=== PATIENT | female | born 1970 | race Caucasian/White ===

== ENCOUNTER 2016-10-12 12:18 | Emergency (ER) | payer OTHER ==
[2016-10-12 12:26] VITALS: BP 131/87; PULSE 73; TEMP 98; BMI 26.5
[2016-10-12] MEDS ORDERED: IBUPROFEN 400 MG TABLET (FP) PO ONE ×2 (13:15→13:18)
--- NOTE | 2016-10-12 13:22 | PDOC ---
History of Present Illness - General Chief Complaint: Pain Stated Complaint: RT ELBOW PAIN Time Seen by Provider: 10/12/16 12:47 History Source: Patient - History of Present Illness Occurred: reports: other Upper Extremity Pain Location: right: elbow Method of Injury: reports: direct blow Past History - Past Medical History Allergies/Adverse Reactions: Allergies Allergy/AdvReac Type Severity Reaction Status Date / Time dark chocolate Allergy Uncoded 10/12/16 12:26 Home Medications: Ambulatory Orders NK [No Known Home Medication] 10/12/16 Other medical history: migraines - Psycho/Social/Smoking Cessation Hx Suicidal Ideation: No Smoking History: Never smoked Have you smoked in the past 12 months: No Information on smoking cessation initiated: No Hx Alcohol Use: No Drug/Substance Use Hx: No Review of Systems - Review of Systems Constitutional: No: Chills, Fever Musculoskeletal: Yes: Joint Pain. No: Joint Swelling Neurological: No: Numbness, Tingling, Weakness *Physical Exam - Vital Signs Last Vital Signs Temp Pulse Resp BP Pulse Ox 98.0 F 73 16 131/87 97 10/12/16 12:23 10/12/16 12:23 10/12/16 12:23 10/12/16 12:23 10/12/16 12:23 - Physical Exam General Appearance: Yes: Appropriately Dressed. No: Apparent Distress HEENT: positive: Normal Voice Neck: positive: Supple Respiratory/Chest: negative: Respiratory Distress Extremity: positive: Tender (to medical epicondyle mostly w/ pain to site on elbow flexion and with supination to pronation of RUE, ? tendinitis, no joint swelling, FROMI) Integumentary: positive: Dry, Warm Neurologic: positive: Fully Oriented, Alert, Normal Mood/Affect Medical Decision Making - Medical Decision Making 10/12/16 13:17 45-year-old female, denies any significant past medical history, here with right elbow pain. Patient reports pain to elbow status post accidentally striking it against a heavy door several weeks ago. States bruising to lateral aspect of elbow healed but that pain has persisted and gradually getting worse, affecting her ADLs and keeping her up at night. States she is not sure if her injury weeks ago is causing her pain or if it is due to the fact that she used to lift weights. 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 Taking motrin w/ some relief. Denies swelling or sensory changes. Pt well appearing on exam w/ moderate ttp over both lateral and medial epicondyles, worse over medial epicondyle w/ worsening pain w/ flexion of elbow. ?tendinitis vs other MSK source. Dc w/ pain control, sling and ortho f/u *DC/Admit/Observation/Transfer Diagnosis at time of Disposition: Elbow pain, right - Discharge Dispostion Disposition: HOME Condition at time of disposition: Good - Referrals Referrals: Teja Allen MD [Staff Physician] - - Patient Instructions Printed Discharge Instructions: DI for Elbow Pain Additional Instructions: Please follow up with Dr Allen of orthopedics
== END 2016-10-12 13:24 | disposition home or self-care (01) ==
LOC: JERFT 12:18 → JER 12:18 → JERFT 13:24
DX: M25.521 Pain in right elbow (principal)
CPT/HCPCS: 99281-25

== ENCOUNTER 2019-01-27 12:56 | Day surgery (SDC) | payer OTHER | END 2019-01-27 18:15 | disposition home or self-care (01) | LOC: FASU 12:56 ==

== ENCOUNTER 2019-04-17 10:16 | Inpatient (IN) | payer OTHER ==
[2019-04-17] MEDS ORDERED: BUPIVACAINE LIPOSOME/PF (EXPAREL) 266 MG/20 ML VIAL ONE ×2 (10:36→11:25)
[2019-04-17] MEDS ORDERED: BUPIVACAINE HCL/PF 0.25% (2.5MG/ML) 10 ML VIAL ONE (10:36)
[2019-04-17] MEDS ORDERED: BENZOIN TINCTURE SWABSTICK TP ONE (11:03)
[2019-04-17] MEDS ORDERED: KETAMINE HCL 200 MG/20 ML VIAL ONE (11:13)
[2019-04-17] MEDS ORDERED: MIDAZOLAM HCL 2 MG/2 ML SINGLE DOSE VIAL ONE ×2 (11:13→11:27)
[2019-04-17] MEDS ORDERED: ROPIVACAINE HCL 0.5% 30ML VIAL ONE (11:25)
[2019-04-17] MEDS ORDERED: PROPOFOL 20 ML ONE ×8 (12:05→13:54)
[2019-04-17] MEDS ORDERED: ceFAZolin SODIUM 1 GM VIAL IVPB ONE ×2 (12:05→20:36)
[2019-04-17] MEDS ORDERED: VANCOMYCIN 1,000 MG VIAL (RESTRICTED TO ID ONLY) IVPB ONE (12:18)
[2019-04-17] MEDS ORDERED: THROMBIN (BOVINE) 5,000 UNIT VIAL TP ONE (12:32)
[2019-04-17] MEDS ORDERED: EPHEDRINE SULFATE/0.9% NACL/PF 50 MG/10 ML SYRINGE NR ONE (12:39)
[2019-04-17] MEDS ORDERED: TRANEXAMIC ACID 1000 MG/10 ML VIAL ONE (13:19)
[2019-04-17] MEDS ORDERED: GLYCOPYRROLATE 0.2 MG/1 ML VIAL ONE (14:00)
[2019-04-17] MEDS ORDERED: NEOSTIGMINE METHYLSULFATE 0.5 MG/1 ML - 10 ML MDV ONE (14:01)
[2019-04-17] MEDS ORDERED: ceFAZolin SODIUM 1 GM VIAL ONE ×2 (15:28→19:56)
--- NOTE | 2019-04-17 15:48 | PN ---
Progress Note (short form) - Note Progress Note: 48F s/p L3, L4, L5, S1 laminectomies; L4-L5, L5-S1 discectomies; L4-L5, L5-S1 PLIF; insertion of biomechanical device L4-L5, L5-S1; L3-S1 posterior arthrodesis; L3-S1 posterior instrumentation POD #0. -Admit to ICU post-op. -Pain control: per anaesthesia team; recommend SHOPPER INSIGHTS MANAGER; No NSAID's. -DVT PPx: - Mechanical only: CHAPITO's, SCD's. -Incentive spirometry q15min. -PT/OT/Rehab, OOB. -WBAT B/L LE. -q4h B/L LE NV checks. -Post-op antibiotics x 3 doses. -NPO until flatus. -f/u AM labs. -f/u drain output. -d/c Aparicio catheter when patient ambulating comfortably. -Care per medical hospitalist: Dr. Orosco. -No bending, lifting more than 5lbs, or twisting x 6 months. -Discharge planning: f/u w/in 7-10 days of hospital discharge at [facility] [place] office; call for appointment; . -Will follow. Harris Fabian MD (Orthopaedic Surgery).
--- NOTE | 2019-04-17 15:51 | OP ---
Operative Note - Note: Operative Date: 04/17/19 Pre-Operative Diagnosis: 1. 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 2. L4-L5 spondylolisthesis. 3. Multi-level axial instability lumbar spine. Severity of illness: 4. Operation: 1. L3, L4, L5, S1 laminectomies. 2. L4-L5, L5-S1 PLIF with posterolateral arthrodesis. 3. Insertion of biomechanical device L4-L5, L5-S1. 4. L3-S1 posterior instrumentation. 5. Bone autograft. 6. Bone allograft. 7. BMAC. 8. Complex wound closure Post-Operative Diagnosis: Same as Pre-op Surgeon: Harris Fabian Vegetable Farming Supervisor: Luis Carlos Fabian Anesthesiologist/PRICING INTERN: Edward Sevilla Anesthesia: General, Local (TLIP) Specimens Removed: L4-L5, L5-S1 discs Estimated Blood Loss (mls): 1,000 Drains & Tubes with Location: 1 x deep HemoVac Blood Volume Replaced (mls): 450 (Cell Saver) Fluid Volume Replaced (mls): 3,000 (Crystalloid) Operative Report Dictated: Yes
[2019-04-17] MEDS ORDERED: PHENYLEPHRINE HCL 10 MG/1 ML SINGLE DOSE VIAL ONE (16:34)
[2019-04-17] MEDS ORDERED: BACITRACIN 15 GM TUBE TOPICAL OINTMENT ONE (16:52)
[2019-04-17] MEDS ORDERED: ONDANSETRON 4 MG/2 ML VIAL IVPUSH PRN (17:08)
--- NOTE | 2019-04-17 17:19 | PN ---
Progress Note (short form) - Note Progress Note: In PACU, tongue laceration. ENT (Dr. Sanderson) consulted. Will follow.
[2019-04-17] MEDS ORDERED: LIDOCAINE HCL 1%, 10 MG/ML (20ML VIAL) ONE (17:40)
[2019-04-17] MEDS ORDERED: LIDOCAINE HCL 1% EPINEPHRINE 1:200,000 30 ML VIAL (PF) ONE (17:41)
[2019-04-17] MEDS ORDERED: HYDROmorphone *PCA* 10MG/50ML DISP.SYRIN ONE (17:55)
--- NOTE | 2019-04-17 18:10 | CON.ENT ---
Consult Consult Specialty:: ENT Referred by:: Dr. Crawley Reason for Consultation:: tongue laceration - History of Present Illness Chief Complaint: tongue laceration History of Present Illness: 48 yo F admitted for elective surgery after surgery successfully completed, nerve stimulation to assess motor function performed \pt had a bite block in, bite block movement suspected as masseter stimulation caused pt to bite down and a tongue laceration resulted pt evaluated in ICU, still very sedated, not responsive to verbal stimuli discussed with patient's significant other, Shree Torres, via telephone - History Source History Provided By: Family Member, Medical Record Limitations to Obtaining History: Clinical Condition - Past Medical History ...LMP: 04/01/19 - Alcohol/Substance Use Hx Alcohol Use: Yes (SOCIAL) - Smoking History Smoking history: Former smoker Have you smoked in the past 12 months: No If you are a former smoker, when did you quit?: 15 YRS AGO Home Medications - Allergies Allergies/Adverse Reactions: Allergies Allergy/AdvReac Type Severity Reaction Status Date / Time chocolate flavor Allergy Severe Nausea, Verified 01/27/19 13:32 SEVERE MIGRAINE oxycodone Allergy Intermediate HIVES, Verified 01/27/19 13:32 MIGRAINE - Home Medications Home Medications: Ambulatory Orders Acetaminophen W/ Codeine #3 [Tylenol # 3 -] 1 tab PO BID PRN 01/24/19 Aspirin Coated [Ecotrin -] 81 mg PO DAILY 01/24/19 Cyclobenzaprine HCl [Flexeril 10 mg] 10 mg PO HS PRN 01/24/19 Medical Marijuana Oil 0.02 mg SL PRN 01/24/19 Naproxen [Naprosyn] 500 mg PO HS 01/24/19 Physical Exam-ENT Vital Signs: Vital Signs Temperature 98.0 F 04/17/19 10:47 Pulse Rate 82 04/17/19 10:47 Respiratory Rate 20 04/17/19 10:47 Blood Pressure 144/81 04/17/19 10:47 O2 Sat by Pulse Oximetry (%) 97 04/17/19 10:48 Constitutional: Yes: No Distress Head: Yes: WNL Face: Yes: Symmetrical Nose: Yes: WNL Oral/Pharynx: Yes: Other (laceration of right tongue tip, medially based flap, ~ 2.7 cm in total length, more extended on ventral tongue no active bleeding, ~1 cm dorsal tongue component) Problem List - Problems (1) Laceration of tongue Assessment/Plan: pt sustained a laceration of tongue tip, right side related to motor stimulation of masseter, intraoperative bite block suspected to have been displaced from original position, allowing pt to bite down and lacerate tongue tip with her incisors. location and nature of tongue laceration indicates suture repair would result in improved healing, as through and through from dorsal to ventral tongue and a medially based flap resulted lidocaine 1% infiltrated 27 ga needle 3 cc 3-0 chromic suture repair total laceration length rerpaired ~2.7 cm, extending from dorsal tongue tip, down right tongue tip border creating a medially based flap, and then extending ventrally alighed tip of flap then dorsal and ventral sutures placed tolerated well pt on antibiotics perioperatively will follow patient in ICU Code(s): S01.512A - LACERATION WITHOUT FOREIGN BODY OF ORAL CAVITY, INIT ENCNTR Qualifiers: Encounter type: initial encounter Qualified Code(s): S01.512A - Laceration without foreign body of oral cavity, initial encounter
[2019-04-17] MEDS ORDERED: HYDROmorphone *PCA* 10MG/50ML DISP.SYRIN PCA ONE (18:15)
--- NOTE | 2019-04-17 18:27 | PROC ---
Procedure Note Procedure: Pt. shivani to PACU without incident. During sign-out, a laceration to the patient's tongue on the right anterolateral portion was observed. Drs. Fabian and Caren were made aware and Dr. Shree Sanderson (ENT) was consulted. Dr. Sanderson determined the laceration should be sutured. The patient's daughter and significant other were notified. Please see Dr. Sanderson's note for details.
[2019-04-17] MEDS ORDERED: ACETAMINOPHEN 1000 MG/100 ML VIAL (NON FORMULARY) IVPB ONE (21:58)
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
[2019-04-17] MEDS: HYDROmorphone *PCA* 10MG/50ML DISP.SYRIN PCA SCH (22:02)
[2019-04-17] MEDS: CEFAZOLIN 1 GM in DEXTROSE 5%-WATER - 50 ML IVPB SCH (22:03)
[2019-04-17] MEDS: LACTATED RINGERS SOLUTION 1,000 ML IV SCH (22:03)
--- NOTE | 2019-04-17 22:08 | CONSULT ---
Consult Consult Specialty:: IM Reason for Consultation:: post-op medical management - History Source History Provided By: Patient Limitations to Obtaining History: No Limitations - Past Medical History ...LMP: 04/01/19 - Alcohol/Substance Use Hx Alcohol Use: Yes (SOCIAL) - Smoking History Smoking history: Former smoker Have you smoked in the past 12 months: No If you are a former smoker, when did you quit?: 15 YRS AGO Home Medications - Allergies Allergies/Adverse Reactions: Allergies Allergy/AdvReac Type Severity Reaction Status Date / Time chocolate flavor Allergy Severe Nausea, Verified 01/27/19 13:32 SEVERE MIGRAINE oxycodone Allergy Intermediate HIVES, Verified 01/27/19 13:32 MIGRAINE - Home Medications Home Medications: Ambulatory Orders Acetaminophen W/ Codeine #3 [Tylenol # 3 -] 1 tab PO BID PRN 01/24/19 Aspirin Coated [Ecotrin -] 81 mg PO DAILY 01/24/19 Cyclobenzaprine HCl [Flexeril 10 mg] 10 mg PO HS PRN 01/24/19 Medical Marijuana Oil 0.02 mg SL PRN 01/24/19 Naproxen [Naprosyn] 500 mg PO HS 01/24/19 Family Disease History - Family Disease History Family History: Unremarkable Review of Systems - Review of Systems Eyes: reports: No Symptoms HENT: reports: No Symptoms Neck: reports: No Symptoms Cardiovascular: reports: No Symptoms Respiratory: reports: No Symptoms Gastrointestinal: reports: No Symptoms Genitourinary: reports: No Symptoms Breasts: reports: No Symptoms Reported Musculoskeletal: reports: Back Pain Integumentary: reports: No Symptoms Neurological: reports: No Symptoms Endocrine: reports: No Symptoms Hematology/Lymphatic: reports: No Symptoms Psychiatric: reports: No Symptoms Physical Exam Vital Signs: Vital Signs Temperature 97.8 F 04/17/19 18:05 Pulse Rate 79 04/17/19 20:30 Respiratory Rate 14 04/17/19 20:30 Blood Pressure 111/71 04/17/19 20:30 O2 Sat by Pulse Oximetry (%) 100 04/17/19 20:30 Constitutional: Yes: No Distress Eyes: Yes: WNL HENT: Yes: WNL Neck: Yes: WNL Cardiovascular: Yes: WNL Respiratory: Yes: WNL Gastrointestinal: Yes: WNL Renal/: Yes: WNL Musculoskeletal: Yes: Back Pain Extremities: Yes: WNL Edema: No Peripheral Pulses WNL: Yes Wound/Incision: Yes: Clean/Dry, Well Approximated Neurological: Yes: WNL ...Motor Strength: WNL Psychiatric: Yes: WNL Assessment/Plan 48F s/p L3, L4, L5, S1 laminectomies; L4-L5, L5-S1 discectomies; L4-L5, L5-S1 PLIF; insertion of biomechanical device L4-L5, L5-S1; L3-S1 posterior arthrodesis; L3-S1 posterior instrumentation POD #0. cont pain management, incentive spirometry, ICU monitoring. -GI, DVT prophylaxis. -NPO until flatus. -PRBC running. repeat labs in AM -d/c Aparicio catheter when patient ambulating comfortably. -daily weight. strict I&O. -ID: Ancef given mckenzie-operatively. -ICU care appreciated. will f/u in AM.
[2019-04-17] MEDS: CHLORHEXIDINE GLUCONATE 4% CLEANSER FOR DECOLONIZATION TP SCH (23:32)
[2019-04-18] MEDS ORDERED: ceFAZolin SODIUM 1 GM VIAL ONE ×2 (01:02→08:44)
[2019-04-18] MEDS ORDERED: DEXTROSE 5%-WATER - 50 ML IVPB ONE ×2 (01:03→08:44)
[2019-04-18] MEDS: CEFAZOLIN 1 GM in DEXTROSE 5%-WATER - 50 ML IVPB SCH ×2 (01:12→08:46)
[2019-04-18 06:46] LABS: BLOOD UREA NITROGEN 7.4 mg/dL (7-18); CALCIUM 7.6 mg/dL (8.5-10.1); CREATININE 0.6 mg/dL (0.55-1.3); MAGNESIUM 2.2 mg/dL (1.8-2.4); PHOSPHOROUS 3.3 mg/dL (2.5-4.9); POTASSIUM 4.7 mmol/L (3.5-5.1)
[2019-04-18] MEDS: LACTATED RINGERS SOLUTION 1,000 ML IV SCH (09:00)
[2019-04-18 09:04] LABS: HEMATOCRIT 36.3 % (32.4-45.2); HEMOGLOBIN 12.3 GM/dL (10.7-15.3); MCH 30.8 pg (25.7-33.7); MEAN CELL VOLUME 90.8 fl (80-96); MEAN PLT VOLUME 8.2 fl (7.5-11.1); PLATELET COUNT 168 K/MM3 (134-434); RBC 3.99 M/mm3 (3.60-5.2); RDW 14.4 % (11.6-15.6); WHITE BLOOD COUNT 14.7 K/mm3 (4.0-10.0)
[2019-04-18] MEDS: HYDROmorphone *PCA* 10MG/50ML DISP.SYRIN PCA SCH ×2 (09:19→18:32)
[2019-04-18] MEDS: MUPIROCIN 2% TOPICAL OINTMENT FOR DECOLONIZATION NS SCH ×3 (10:05→22:31)
[2019-04-18] MEDS ORDERED: ACETAMINOPHEN 1000 MG/100 ML VIAL (NON FORMULARY) IVPB ONE (10:32)
--- NOTE | 2019-04-18 11:08 | PN ---
Teaching Attending Note Name of Resident: Harris Venegas ATTENDING PHYSICIAN STATEMENT I saw and evaluated the patient. I reviewed the resident's note and discussed the case with the resident. I agree with the resident's findings and plan as documented. SUBJECTIVE: Pt seen and examined in the ICU. Pain controlled with BILINGUAL HR GENERALIST pump. Denies nausea, vomiting. No flatus yet. OBJECTIVE: Vital Signs Period Temp Pulse Resp BP Sys/Merritt Pulse Ox Last 24 Hr 97.4 F-98.2 F 53-84 10-89 93-133/45-84 96-100 Intake & Output 04/15/19 04/16/19 04/17/19 04/18/19 23:59 23:59 23:59 23:59 Intake Total 3850 1650 Output Total 3170 700 Balance 680 950 Weight 72.575 kg Gen: NAD at rest Heart: RRR Lung: decreased breath sounds at the bases Abd: soft, nontender Ext: no edema CBC, BMP 04/18/19 05:30 04/18/19 05:30 Active Medications Chlorhexidine Gluconate (Hibiclens For Decolonization -) 1 applic TP HS JEOVANY Last Admin: 04/17/19 23:32 Dose: 1 applic Fentanyl (Sublimaze Injection -) 50 mcg IVPUSH [id number] PRN PRN Reason: PAIN-PACU ORDER X 4 DOSES ONLY Hydromorphone HCl (Hydromorphone 10 Mg/50 Ml-Ns) 10 mg BILINGUAL HR GENERALIST BILINGUAL HR GENERALIST JEOVANY; Protocol Stop: 04/24/19 18:21 Last Admin: 04/18/19 09:19 Dose: 10 mg Lactated Ringer's (Lactated Ringers Solution) 1,000 mls @ 125 mls/hr IV ASDIR JEOVANY Last Admin: 04/17/19 22:03 Dose: Not Given Mupirocin (Bactroban Ointment (For Decolonization) -) 1 applic NS BID JEOVANY Stop: 04/22/19 21:59 Last Admin: 04/18/19 10:05 Dose: Not Given Ondansetron HCl (Zofran Injection) 4 mg IVPUSH Q6H PRN PRN Reason: NAUSEA AND/OR VOMITING ASSESSMENT AND PLAN: Lumbar Spinal Stenosis with Radiculopathy and Neurogenic Claudication s/p L3-S1 Laminectomies/L4-L5, L5-S1 PLIF/Biomechanical Device Insertion Migraines - pain control - incentive spirometry - monitor drain output - PO when flatus - d/c sandoval when OOB - rehab/PT - DVT prophylaxis - disposition per surgery
--- NOTE | 2019-04-18 11:09 | PN ---
Progress Note, Physician Chief Complaint: back pain denies chest pain, palpitations, nausea, vomiting, diarrhea - Current Medication List Current Medications: Active Medications Chlorhexidine Gluconate (Hibiclens For Decolonization -) 1 applic TP HS [facility] Last Admin: 04/17/19 23:32 Dose: 1 applic Fentanyl (Sublimaze Injection -) 50 mcg IVPUSH [id number] PRN PRN Reason: PAIN-PACU ORDER X 4 DOSES ONLY Hydromorphone HCl (Hydromorphone 10 Mg/50 Ml-Ns) 10 mg DROP FORGER HELPER DROP FORGER HELPER [facility]; Protocol Stop: 04/24/19 18:21 Last Admin: 04/18/19 09:19 Dose: 10 mg Lactated Ringer's (Lactated Ringers Solution) 1,000 mls @ 125 mls/hr IV ASDIR [facility] Last Admin: 04/17/19 22:03 Dose: Not Given Mupirocin (Bactroban Ointment (For Decolonization) -) 1 applic NS BID [facility] Stop: 04/22/19 21:59 Last Admin: 04/18/19 10:05 Dose: Not Given Ondansetron HCl (Zofran Injection) 4 mg IVPUSH Q6H PRN PRN Reason: NAUSEA AND/OR VOMITING - Objective Vital Signs: Vital Signs Temperature 98.2 F 04/18/19 06:00 Pulse Rate 84 04/18/19 10:19 Respiratory Rate 12 04/18/19 10:19 Blood Pressure 107/55 L 04/18/19 10:19 O2 Sat by Pulse Oximetry (%) 98 04/18/19 10:19 Constitutional: Yes: Well Nourished Eyes: Yes: WNL HENT: Yes: WNL Neck: Yes: WNL Cardiovascular: Yes: WNL Respiratory: Yes: WNL Gastrointestinal: Yes: WNL Genitourinary: Yes: WNL Musculoskeletal: Yes: WNL Extremities: Yes: WNL Edema: No Peripheral Pulses WNL: Yes Integumentary: Yes: WNL Wound/Incision: Yes: Clean/Dry, Well Approximated Neurological: Yes: WNL Psychiatric: Yes: WNL Labs: CBC, BMP 04/18/19 05:30 04/18/19 05:30 Assessment/Plan 48F s/p L3, L4, L5, S1 laminectomies; L4-L5, L5-S1 discectomies; L4-L5, L5-S1 PLIF; insertion of biomechanical device L4-L5, L5-S1; L3-S1 posterior arthrodesis; L3-S1 posterior instrumentation POD #1. cont pain management, incentive spirometry, ICU monitoring. -post-op reactive leucocytosis: will monitor. -GI, DVT prophylaxis. -NPO until flatus. -S/P PRBC transfusion for acute blood loss anemia. H&H stable. -d/c Aparicio catheter when patient ambulating comfortably. -daily weight. strict I&O. -ID: Ancef given mckenzie-operatively. -ICU care appreciated. -labs and meds reviewed assessment and plan discussed with pt phone calls answered throughout the day. A&P discussed with Dr Fabian.
--- NOTE | 2019-04-18 12:13 | PN ---
Progress Note (short form) - Note Progress Note: Anesthesiology Post-op/Pain Service POD#1 s/p L4-S1 fusion under GA and regional anesthesia. She is feeling well today. Pain is slightly worse today in the back versus yesterday as she feels that the block is wearing off. FOUNDRY MOLDER managing pain well though. Tongue laceration appears stable with sutures in tact, no obvious swelling; she is able to move it without difficulty and c/o only a small amount of pain there. VSS. 48 y.o. woman with stable post-operative course, healing tongue laceration. Continue FOUNDRY MOLDER for now until diet advanced.
--- NOTE | 2019-04-18 12:56 | PN ---
Physical Exam: SUBJECTIVE: Patient seen and examined at bedside s/p laminectomy. Pt complaining of constant right groin pain worse w/ movt since surgery. Denies f/c , n/v, cp/sob, numbness/tingling/weakness. Has not passed flatus yet. OBJECTIVE: Vital Signs Period Temp Pulse Resp BP Sys/Merritt Pulse Ox Last 24 Hr 97.4 F-98.2 F 53-84 10-89 93-133/45-84 96-100 GEN: Well appearing, NAD, comfortable. AAOx3 HEENT: NC/AT, EOMI. No facial asymmetry. Moist mucous membranes. Normal voice. Supple neck w/ FROM. Sutures in place on right lateral aspect of tongue w/o active bleeding or discharge CV: S1/S2, RRR, no m/r/g LUNG: CTAB, no wheezes, crackles, rales, rhonchi. GI: soft, ndnt, +BS, no guarding, no rebound. No masses. EXTREMITIES: 2+ distal pulses. No LE edema. No obvious deformities of all extremities. SKIN: warm, dry, normal turgor PSYCH: normal mood and affect NEURO: Moving all extremities well Laboratory Results - last 24 hr 04/17/19 04/18/19 04/18/19 10:23 05:30 05:30 WBC 14.7 H RBC 3.99 Hgb 12.3 Hct 36.3 MCV 90.8 MCH 30.8 MCHC 34.0 RDW 14.4 Plt Count 168 D MPV 8.2 Sodium 141 Potassium 4.7 Chloride 109 H Carbon Dioxide 26 Anion Gap 6 L BUN 7.4 Creatinine 0.6 Est GFR (CKD-EPI)AfAm 124.05 Est GFR (CKD-EPI)NonAf 107.03 Random Glucose 111 H Calcium 7.6 L Phosphorus 3.3 Magnesium 2.2 Blood Type A POSITIVE Antibody Screen Negative Crossmatch See Detail Active Medications Generic Name Dose Route Start Last Admin Trade Name Freq PRN Reason Stop Dose Admin Chlorhexidine Gluconate 1 applic 04/17/19 22:00 04/17/19 23:32 Hibiclens For Decolonization - TP 1 applic HS JEOVANY Administration Fentanyl 50 mcg 04/17/19 18:20 Sublimaze Injection - IVPUSH [id number] PRN PAIN-PACU ORDER X 4 DOSES ONLY Hydromorphone HCl 10 mg 04/17/19 18:30 04/18/19 09:19 Hydromorphone 10 Mg/50 Ml-Ns COMMERCIAL COLLECTOR 04/24/19 18:21 10 mg COMMERCIAL COLLECTOR JEOVANY Administration Protocol Lactated Ringer's 1,000 mls @ 125 mls/hr 04/17/19 17:15 04/17/19 22:03 Lactated Ringers Solution IV Not Given ASDIR JEOVANY Mupirocin 1 applic 04/17/19 22:00 04/18/19 10:05 Bactroban Ointment (For Decolonization) - NS 04/22/19 21:59 Not Given BID JEOVANY Ondansetron HCl 4 mg 04/17/19 17:08 Zofran Injection IVPUSH Q6H PRN NAUSEA AND/OR VOMITING ASSESSMENT/PLAN: 48F pmh complex migraines and ?past cerebral thrombosis on ASA in ICU as post op pt s/p L3-S1 laminectomy and insertion of bio-device. Course was complicated by hypotension in which pt rcvd 2U PRBC, and tongue biting, repaired by ENT. VS wnl. Neurovascularly intact. NEURO: post op pain control; h/o ?cerebral thromboses - hydromorphone COMMERCIAL COLLECTOR - fentanyl for breakthrough pain - pt is relatively pain free - ASA HELD PULM: - normal respiratory effort, clear lungs - Incentive spirametry q15m MSK: s/p L3-S1 laminectomy - PT eval placed - dispo and recs per surgery - pt rcvd postop abx ppx (3 doses ancef) - f/u w/ Dr. Fabian 7-10 post dc; [phone] for appt FENGI: - NPO until flatus - LR 125mL/hr HEME: - s/p 2U PRBC after found to be hypotensive in the 90s - H/H 12.3 / 36.3 - monitor BP and H/H ID: - s/p 3 doses ancef as post op ppx - monitor VS for signs of infection ENT: tongue lac - s/p repair - not currently bleeding - ENT: Dr. Sanderson DVT PPX: SCD LINES/TUBES/DRAINS: Aparicio in place until ambulatory; hemovac in place draining serosanguinous fluid. Visit type - Emergency Visit Emergency Visit: No - New Patient This patient is new to me today: Yes Date on this admission: 04/19/19 - Critical Care Critical Care patient: No
[2019-04-18] MEDS: CHLORHEXIDINE GLUCONATE 4% CLEANSER FOR DECOLONIZATION TP SCH (22:31)
[2019-04-19 05:52] LABS: BASO % 0.1 % (0-2.0); EOS % 0.4 % (0-4.5); HEMATOCRIT 33.7 % (32.4-45.2); HEMOGLOBIN 11.4 GM/dL (10.7-15.3); LYMPH % 13.1 % (8-40); MCHC 33.8 g/dl (32.0-36.0); MEAN CELL VOLUME 91.7 fl (80-96); MONO % 6.2 % (3.8-10.2); NEUT % 80.2 % (42.8-82.8); PLATELET COUNT 150 K/MM3 (134-434); RBC 3.67 M/mm3 (3.60-5.2); RDW 14.2 % (11.6-15.6); WHITE BLOOD COUNT 11.8 K/mm3 (4.0-10.0)
[2019-04-19 06:15] LABS: CALCIUM 7.9 mg/dL (8.5-10.1); CREATININE 0.6 mg/dL (0.55-1.3); PHOSPHOROUS 2.3 mg/dL (2.5-4.9); POTASSIUM 3.7 mmol/L (3.5-5.1)
--- NOTE | 2019-04-19 10:33 | PN ---
Teaching Attending Note Name of Resident: Harris Venegas ATTENDING PHYSICIAN STATEMENT I saw and evaluated the patient. I reviewed the resident's note and discussed the case with the resident. I agree with the resident's findings and plan as documented. SUBJECTIVE: Pt seen and examined in the ICU. Pain better controlled. No flatus yet. No fevers or chills. Ambulated with PT yesterday. OBJECTIVE: Vital Signs Period Temp Pulse Resp BP Sys/Merritt Pulse Ox Last 24 Hr 98.1 F-99.8 F 72-110 14-16 93-118/52-71 90-96 Intake & Output 04/16/19 04/17/19 04/18/19 04/19/19 23:59 23:59 23:59 23:59 Intake Total 3850 3300 Output Total 3170 1980 1000 Balance 680 1320 -1000 Weight 72.575 kg 73.119 kg Gen: NAD at rest Heart: RRR Lung: decreased breath sounds at the bases Abd: soft, nontender Ext: no edema Drain with sanguinous fluid CBC, BMP 04/19/19 05:10 04/19/19 05:10 Active Medications Chlorhexidine Gluconate (Hibiclens For Decolonization -) 1 applic TP HS [facility] Last Admin: 04/18/19 22:31 Dose: 1 applic Fentanyl (Sublimaze Injection -) 50 mcg IVPUSH [id number] PRN PRN Reason: PAIN-PACU ORDER X 4 DOSES ONLY Hydromorphone HCl (Hydromorphone 10 Mg/50 Ml-Ns) 10 mg SATELLITE PROJECT SITE MONITOR SATELLITE PROJECT SITE MONITOR [facility]; Protocol Stop: 04/24/19 18:21 Last Admin: 04/18/19 18:32 Dose: Not Given Lactated Ringer's (Lactated Ringers Solution) 1,000 mls @ 125 mls/hr IV ASDIR JEOVANY Last Admin: 04/18/19 09:00 Dose: 125 mls/hr Mupirocin (Bactroban Ointment (For Decolonization) -) 1 applic NS BID JEOVANY Stop: 04/22/19 21:59 Last Admin: 04/18/19 22:31 Dose: Not Given Ondansetron HCl (Zofran Injection) 4 mg IVPUSH Q6H PRN PRN Reason: NAUSEA AND/OR VOMITING ASSESSMENT AND PLAN: Lumbar Spinal Stenosis with Radiculopathy and Neurogenic Claudication s/p L3-S1 Laminectomies/L4-L5, L5-S1 PLIF/Biomechanical Device Insertion Tongue Laceration Migraines - pain control - incentive spirometry - monitor drain output - PO when flatus - d/c sandoval - rehab/PT - DVT prophylaxis - can monitor on floor if ok with surgery
--- NOTE | 2019-04-19 10:36 | PN ---
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
--- NOTE | 2019-04-19 13:53 | PN ---
Physical Exam: SUBJECTIVE: Patient seen and examined at bedside. Post op day 2. No acute events overnight. Patient has no complaints. Denies f/c, chest pain, sob, n/v, abdominal pain. Has not passed flatus. Pt looking forward to PT harjinder so she can freely ambulate. OBJECTIVE: Vital Signs Period Temp Pulse Resp BP Sys/Merritt Pulse Ox Last 24 Hr 98.1 F-99.8 F 86-110 14-16 93-118/52-71 96-96 GEN: Well appearing, NAD, comfortable. AAOx3 HEENT: NC/AT, EOMI. No facial asymmetry. Normal voice. Supple neck w/ FROM. CV: S1/S2, RRR, no m/r/g LUNG: CTAB, no wheezes, crackles, rales, rhonchi. GI: Mild TTP Right periumbilical. Otherwise soft, ndnt. +BS. EXTREMITIES: 2+ distal pulses. No LE edema. No obvious deformities of all extremities. SKIN: warm, dry, normal turgor PSYCH: normal mood and affect NEURO: Moving all extremities well. Laboratory Results - last 24 hr 04/19/19 04/19/19 05:10 05:10 WBC 11.8 H RBC 3.67 Hgb 11.4 Hct 33.7 MCV 91.7 MCH 31.0 MCHC 33.8 RDW 14.2 Plt Count 150 MPV 8.0 Absolute Neuts (auto) 9.4 H Neutrophils % 80.2 D Lymphocytes % 13.1 D Monocytes % 6.2 Eosinophils % 0.4 D Basophils % 0.1 Nucleated RBC % 0 Sodium 140 Potassium 3.7 Chloride 106 Carbon Dioxide 30 Anion Gap 4 L BUN 6.0 L Creatinine 0.6 Est GFR (CKD-EPI)AfAm 124.05 Est GFR (CKD-EPI)NonAf 107.03 Random Glucose 86 Calcium 7.9 L Phosphorus 2.3 L Magnesium 2.0 Active Medications Generic Name Dose Route Start Last Admin Trade Name Freq PRN Reason Stop Dose Admin Chlorhexidine Gluconate 1 applic 04/17/19 22:00 04/18/19 22:31 Hibiclens For Decolonization - TP 1 applic HS JEOVANY Administration Fentanyl 50 mcg 04/17/19 18:20 Sublimaze Injection - IVPUSH [id number] PRN PAIN-PACU ORDER X 4 DOSES ONLY Hydromorphone HCl 10 mg 04/17/19 18:30 04/18/19 18:32 Hydromorphone 10 Mg/50 Ml-Ns GREASE MAKER HEAD 04/24/19 18:21 Not Given GREASE MAKER HEAD JEOVANY Protocol Lactated Ringer's 1,000 mls @ 125 mls/hr 04/17/19 17:15 04/18/19 09:00 Lactated Ringers Solution IV 125 mls/hr ASDIR JEOVANY Administration Mupirocin 1 applic 04/17/19 22:00 04/18/19 22:31 Bactroban Ointment (For Decolonization) - NS 04/22/19 21:59 Not Given BID JEOVANY Ondansetron HCl 4 mg 04/17/19 17:08 Zofran Injection IVPUSH Q6H PRN NAUSEA AND/OR VOMITING ASSESSMENT/PLAN: 48F pmh complex migraines and ?past cerebral thrombosis on ASA in ICU as post op pt s/p L3-S1 spinal fusion. Course was complicated by hypotension, in which pt rcvd 2U PRBC, and tongue biting, repaired by ENT. Pt has been doing well. VS wnl. Neurovascularly intact. NEURO: post op pain control; h/o ?cerebral thromboses - hydromorphone GREASE MAKER HEAD - fentanyl for breakthrough pain - ASA HELD PULM: - normal respiratory effort, clear lungs - Incentive spirometry q15m MSK: s/p L3-S1 laminectomy - PT / ambulate / OOB - pt rcvd postop abx ppx (3 doses ancef) - dispo and recs per surgery - Surgery eval'd; transferred to med/surg - f/u w/ Dr. Fabian 7-10 post dc; [phone] for appt FENGI: - No flatus today - NPO until flatus - LR 125mL/hr HEME: - s/p 2U PRBC after found to be hypotensive in the 90s on POD1 - 04/18/19 H/H 12.3 / 36.3 - 04/19/19 H/H 11.4/33.7 - Leukocytosis downtrending; likely 2/2 post-op - cont to monitor BP and H/H ID: - s/p 3 doses ancef as post op ppx - monitor VS for signs of infection ENT: tongue lac - s/p repair not currently bleeding - ENT: Dr. Sanderson DVT PPX: SCD LINES/TUBES/DRAINS: DC Aparicio when ambulatory; hemovac in place draining serosanguinous fluid. Visit type - Emergency Visit Emergency Visit: No - New Patient This patient is new to me today: No - Critical Care Critical Care patient: No - Discharge Referral Referred to [facility] Med P.C.: No
[2019-04-19] MEDS: MUPIROCIN 2% TOPICAL OINTMENT FOR DECOLONIZATION NS SCH ×2 (14:17→21:46)
--- NOTE | 2019-04-19 15:11 | PN ---
Progress Note (short form) - Note Progress Note: POD#2 ICU Patient seen yesterday and today. C/O mild incisional pain no leg pain Walked in the hallway both today and yesterday. Vitals As per chart. CVS Stable RESP AE = bilaterally ABD Soft R groin pain ? extending to the R Iliac fossa No flatus as yet. MSkeletal Neuro at baseline ` Wound dry Drain removed Aparicio removed ASSESS Doing well PLAN T/F to floor PT mobilize Pain mx to continue D/C planningBurke
[2019-04-19 15:28] VITALS: BMI 29.4
[2019-04-19] MEDS: LACTATED RINGERS SOLUTION 1,000 ML IV SCH (18:02)
--- NOTE | 2019-04-19 19:55 | PN ---
Progress Note, Physician Chief Complaint: back pain denies chest pain, palpitations, nausea, vomiting, diarrhea - Current Medication List Current Medications: Active Medications Chlorhexidine Gluconate (Hibiclens For Decolonization -) 1 applic TP HS [facility] Last Admin: 04/18/19 22:31 Dose: 1 applic Fentanyl (Sublimaze Injection -) 50 mcg IVPUSH [id number] PRN PRN Reason: PAIN-PACU ORDER X 4 DOSES ONLY Hydromorphone HCl (Hydromorphone 10 Mg/50 Ml-Ns) 10 mg HAND WOOD SANDER HAND WOOD SANDER [facility]; Protocol Stop: 04/24/19 18:21 Last Admin: 04/18/19 18:32 Dose: Not Given Lactated Ringer's (Lactated Ringers Solution) 1,000 mls @ 125 mls/hr IV ASDIR [facility] Last Admin: 04/19/19 18:02 Dose: Not Given Mupirocin (Bactroban Ointment (For Decolonization) -) 1 applic NS BID [facility] Stop: 04/22/19 21:59 Last Admin: 04/19/19 14:17 Dose: Not Given Ondansetron HCl (Zofran Injection) 4 mg IVPUSH Q6H PRN PRN Reason: NAUSEA AND/OR VOMITING - Objective Vital Signs: Vital Signs Temperature 99.6 F 04/19/19 18:00 Pulse Rate 105 H 04/19/19 18:00 Respiratory Rate 16 04/19/19 18:00 Blood Pressure 108/74 04/19/19 18:00 O2 Sat by Pulse Oximetry (%) 98 04/19/19 09:00 Constitutional: Yes: No Distress Eyes: Yes: WNL HENT: Yes: WNL Neck: Yes: WNL Cardiovascular: Yes: WNL Respiratory: Yes: WNL Gastrointestinal: Yes: WNL ...Rectal Exam: Yes: Deferred Genitourinary: Yes: WNL Musculoskeletal: Yes: Back Pain Extremities: Yes: WNL Edema: No Peripheral Pulses WNL: Yes Integumentary: Yes: WNL Wound/Incision: Yes: Clean/Dry, Well Approximated Neurological: Yes: WNL ...Motor Strength: WNL Psychiatric: Yes: WNL Labs: CBC, BMP 04/19/19 05:10 04/19/19 05:10 Assessment/Plan 48F s/p L3, L4, L5, S1 laminectomies; L4-L5, L5-S1 discectomies; L4-L5, L5-S1 PLIF; insertion of biomechanical device L4-L5, L5-S1; L3-S1 posterior arthrodesis; L3-S1 posterior instrumentation POD #2. cont pain management, incentive spirometry, ICU monitoring. -post-op reactive leucocytosis: monitor for now. -GI, DVT prophylaxis. -NPO until flatus. -S/P PRBC transfusion for acute blood loss anemia. H&H stable. -daily weight. strict I&O. -ID: Ancef given mckenzie-operatively. -ICU care appreciated. -labs and meds reviewed assessment and plan discussed with pt phone calls answered throughout the day. A&P discussed with Dr Fabian.
[2019-04-19] MEDS: HYDROmorphone *PCA* 10MG/50ML DISP.SYRIN PCA SCH (21:40)
[2019-04-19] MEDS: CHLORHEXIDINE GLUCONATE 4% CLEANSER FOR DECOLONIZATION TP SCH (21:47)
[2019-04-20] MEDS ORDERED: ACETAMINOPHEN 325 MG TABLET (FP) PO ONE (04:00)
[2019-04-20 06:11] LABS: BASO % 0.1 % (0-2.0); EOS % 0.3 % (0-4.5); HEMATOCRIT 33.7 % (32.4-45.2); HEMOGLOBIN 11.6 GM/dL (10.7-15.3); LYMPH % 8.6 % (8-40); MCH 31.3 pg (25.7-33.7); MCHC 34.3 g/dl (32.0-36.0); MEAN CELL VOLUME 91.2 fl (80-96); MEAN PLT VOLUME 8.1 fl (7.5-11.1); MONO % 5.2 % (3.8-10.2); NEUT % 85.8 % (42.8-82.8); PLATELET COUNT 166 K/MM3 (134-434); RDW 13.9 % (11.6-15.6); WHITE BLOOD COUNT 14.1 K/mm3 (4.0-10.0)
[2019-04-20 06:38] LABS: BLOOD UREA NITROGEN 6.9 mg/dL (7-18); CALCIUM 8.2 mg/dL (8.5-10.1); CREATININE 0.6 mg/dL (0.55-1.3); PHOSPHOROUS 2.3 mg/dL (2.5-4.9); POTASSIUM 3.7 mmol/L (3.5-5.1)
[2019-04-20] MEDS: MUPIROCIN 2% TOPICAL OINTMENT FOR DECOLONIZATION NS SCH (10:24)
--- NOTE | 2019-04-20 15:05 | PN ---
Progress Note (short form) - Note Progress Note: Anesthesiology Post-op/Pain Service POD#3 s/p L4-S1 fusion under GA and regional anesthesia. She is feeling well today. Pain is slightly better today in the back versus yesterday. She is walking. Not using AERIAL PHOTOGRAMMETRIST anymore. Tongue laceration appears stable with sutures in tact. VSS. 48 y.o. woman with stable post-operative course, healing tongue laceration. Will d/c AERIAL PHOTOGRAMMETRIST and start PO pain meds. D/W pt. and RN. Continue further management per primary team.
[2019-04-20] MEDS: traMADol HCL 50 MG TABLET PO PRN (16:21)
--- NOTE | 2019-04-20 16:24 | PN ---
Progress Note, Physician Chief Complaint: back pain denies chest pain, palpitations, nausea, vomiting, diarrhea - Current Medication List Current Medications: Active Medications Ondansetron HCl (Zofran Injection) 4 mg IVPUSH Q6H PRN PRN Reason: NAUSEA AND/OR VOMITING Tramadol HCl (Ultram -) 50 mg PO Q6H PRN PRN Reason: PAIN LEVEL 6-10 - Objective Vital Signs: Vital Signs Temperature 98.8 F 04/20/19 15:00 Pulse Rate 104 H 04/20/19 15:00 Respiratory Rate 20 04/20/19 15:00 Blood Pressure 114/69 04/20/19 15:00 O2 Sat by Pulse Oximetry (%) 96 04/20/19 09:00 Constitutional: Yes: Well Nourished, No Distress Eyes: Yes: WNL HENT: Yes: WNL Neck: Yes: WNL Cardiovascular: Yes: WNL Respiratory: Yes: WNL Gastrointestinal: Yes: WNL Genitourinary: Yes: WNL Musculoskeletal: Yes: Joint Stiffness Extremities: Yes: WNL Edema: No Peripheral Pulses WNL: Yes Integumentary: Yes: WNL Wound/Incision: Yes: Clean/Dry, Well Approximated Neurological: Yes: WNL Labs: CBC, BMP 04/20/19 05:15 04/20/19 05:15 Assessment/Plan 48F s/p L3, L4, L5, S1 laminectomies; L4-L5, L5-S1 discectomies; L4-L5, L5-S1 PLIF; insertion of biomechanical device L4-L5, L5-S1; L3-S1 posterior arthrodesis; L3-S1 posterior instrumentation POD #3. cont pain management, incentive spirometry. -post-op reactive leucocytosis: will monitor for now. -GI, DVT prophylaxis. -oral diet as tolerated -S/P PRBC transfusion for acute blood loss anemia. H&H stable. -daily weight. strict I&O. -ID: Ancef given mckenzie-operatively. -ICU care appreciated. -labs and meds reviewed assessment and plan discussed with pt phone calls answered throughout the day. A&P discussed with Dr Fabian. PITO planned for Gianluca tomorrow.
--- NOTE | 2019-04-20 17:55 | PN ---
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 as no flatus yet PE NAD awake, alert, conversant mouth: lips teeth WNL tongue - mobile, no edema, no swelling, suture line intact, sl mucosal fibrinous exudate rajesh ventral tongue along laceration/suture line Impression doing well after tongue laceration and repair Recommend: continue observation diet as tolerated once able to take PO as per medical criteria sutures are absorbable (chromic) so no suture removal is required Shree Sanderson MD FACS Problem List - Problems (1) Laceration of tongue Code(s): S01.512A - LACERATION WITHOUT FOREIGN BODY OF ORAL CAVITY, INIT ENCNTR Qualifiers: Encounter type: initial encounter Qualified Code(s): S01.512A - Laceration without foreign body of oral cavity, initial encounter
--- NOTE | 2019-04-20 17:57 | PATH ---
Surgical Pathology Report Patient Name: NICKO WASHINGTON Med. Rec. #: [id number] /Age/Gender: 1970 (Age: 48) / F Account: [id number] Location: [facility] MED/SURG Taken: 04/17/2019 Received: 04/18/2019 Reported: 04/20/2019 Physicians: Harris Fabian M.D. Specimen(s) Received DISC L3-S1 Clinical History Disc disorder Final Diagnosis DISC, L3-S1, DISCECTOMY: FRAGMENTS OF BONE AND FIBROCARTILAGINOUS TISSUE WITH FOCAL DEGENERATIVE CHANGE. Electronically Signed Steven Jules M.D. Gross Description Received in formalin, labeled "disc, L3-S1" are multiple fragments of light [place] and dark [place] fibrocartilaginous tissue having an aggregate of 3.5 x 1.5 x 0.6 cm. Television Operator tissue is submitted in one cassette. AE/04/19/2019 ebram/04/19/2019
[2019-04-20] MEDS ORDERED: ONDANSETRON 4 MG/2 ML VIAL IVPUSH PRN (18:24)
[2019-04-21] MEDS: traMADol HCL 50 MG TABLET PO PRN ×4 (00:52→18:22)
--- NOTE | 2019-04-21 08:13 | PN ---
Progress Note (short form) - Note Progress Note: ENT awake alert, c/o some tongue pain, tolerating oral fluids also back pain, rajesh when turning, occasionally notes some right hand finger numbness PE NAD tongue - mobile, suture line intact, no bleeding or edema, airway WNL voice clear and strong Impression: tongue laceration healing well after suture repair s/p lumbar spine surgery, postop pain Recommend: advance diet as tolerated postoperative back pain and intermittent right finger numbness to be addressed by surgical team Shree Sanderson MD FACS Problem List - Problems (1) Laceration of tongue Code(s): S01.512A - LACERATION WITHOUT FOREIGN BODY OF ORAL CAVITY, INIT ENCNTR Qualifiers: Encounter type: initial encounter Qualified Code(s): S01.512A - Laceration without foreign body of oral cavity, initial encounter
[2019-04-21] MEDS ORDERED: MAGNESIUM HYDROXIDE 400 MG/5 ML SUSPENSION PO ONE (12:45)
[2019-04-21] MEDS ORDERED: MAGNESIUM HYDROX 2400MG/30ML ORAL SUSPENSION 30 ML CUP PO ONE (12:45)
[2019-04-21] MEDS ORDERED: CYCLOBENZAPRINE HCL 5 MG TABLET PO PRN (13:35)
--- NOTE | 2019-04-21 15:34 | DS ---
Physical Examination Vital Signs: Vital Signs Temperature 98.7 F 04/21/19 14:00 Pulse Rate 103 H 04/21/19 14:00 Respiratory Rate 20 04/21/19 14:00 Blood Pressure 103/68 04/21/19 14:00 O2 Sat by Pulse Oximetry (%) 98 04/21/19 09:00 Constitutional: Yes: Well Nourished, No Distress Eyes: Yes: WNL HENT: Yes: WNL Neck: Yes: WNL Cardiovascular: Yes: WNL Respiratory: Yes: WNL Gastrointestinal: Yes: WNL Renal/: Yes: WNL Musculoskeletal: Yes: Back Pain Extremities: Yes: WNL Edema: No Peripheral Pulses WNL: Yes Integumentary: Yes: WNL Wound/Incision: Yes: Clean/Dry, Well Approximated Neurological: Yes: WNL ...Motor Strength: WNL Psychiatric: Yes: WNL Labs: CBC, BMP 04/20/19 05:15 04/20/19 05:15 Discharge Summary Reason For Visit: INTVRT DISC DISORDERS W RADICULOPATHY, THORACIC Current Active Problems Laceration of tongue (Acute) Hospital Course: 48F s/p L3, L4, L5, S1 laminectomies; L4-L5, L5-S1 discectomies; L4-L5, L5-S1 PLIF; insertion of biomechanical device L4-L5, L5-S1; L3-S1 posterior arthrodesis; L3-S1 posterior instrumentation POD #4. cont pain management, incentive spirometry. -post-op reactive leucocytosis: will monitor for now. -GI, DVT prophylaxis. -oral diet as tolerated -S/P PRBC transfusion for acute blood loss anemia. -daily weight. strict I&O. - Instructions - Home Medications Comprehensive Discharge Medication List: Ambulatory Orders Acetaminophen W/ Codeine #3 [Tylenol # 3 -] 1 tab PO BID PRN 01/24/19 Aspirin Coated [Ecotrin -] 81 mg PO DAILY 01/24/19 Cyclobenzaprine HCl [Flexeril 10 mg] 10 mg PO HS PRN 01/24/19 Medical Marijuana Oil 0.02 mg SL PRN 01/24/19 Naproxen [Naprosyn] 500 mg PO HS 01/24/19
[2019-04-21 16:47] VITALS: BP 128/73; PULSE 105; TEMP 98.4
[2019-04-21] MEDS ORDERED: SODIUM PHOSPHATE/NA BIPHOS 133 ML ENEMA RC ONE (18:15)
[2019-04-21] MEDS ORDERED: NAPROXEN 500 MG TABLET (FP) PO ONE (18:15)
[2019-04-21] MEDS ORDERED: DOCUSATE SODIUM 100 MG CAPSULE (FP) PO SCH (22:00)
--- NOTE | 2019-05-02 11:10 | OP ---
Date of Operation: 04/17/2019 Pre-Operative Diagnosis: 1. 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 2. L3-S1 spinal stenosis with neurogenic claudication. 3. L4-L5 spondylolisthesis. 4. L4-L5, L5-S1 axial segmental instability. Post-Operative Diagnosis: 1. 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 2. L3-S1 spinal stenosis with neurogenic claudication. 3. L4-L5 spondylolisthesis. 4. L4-L5, L5-S1 axial segmental instability. Procedure Performed: 1. L3, L4, L5, S1 bilateral laminectomies and facetectomies. (22800-40, 09451 -50 x 3) 2. L4-L5, L5-S1 posterolateral arthrodesis & posterior lumbar interbody fusion (PLIF). (90717, 68568) 3. L4-L5, L5-S1 insertion biomechanical device. (38575 x 2) 4. L3-S1 posterior instrumentation. (91861-23-14) 5. Morselized bone autograft. (23178) 6. Morselized bone allograft. (11830) 7. Bone marrow aspiration for bone grafting. (41678) 8. Complex wound closure, 4 layers, 30cm. (07453 x 4) Surgeon: Harris Fabian M.D. Charge Coordinator: Luis Carlos Fabian M.D. Anesthesiologist: Edward Sevilla M.D. Anesthesia: General, Local (TLIP block). Position: Prone. Incision: Midline. Specimens Removed: L4-L5, L5-S1 disc. Drains: 1 x deep HemoVac. Estimated Blood Loss: 1L. Intravenous Fluid: 3L crystalloid. Transfusions: 450cc Cell Saver. Complications: None. Bacteriology: None. Closure: No. 1 Vicryl, 2-0 Biosyn absorbable sutures. Indications: The patient was indicated for the above listed surgical procedure due to progressive neurological and functional decline that limits her mobility and capacity to perform activities of daily living. The patient was identified in the holding area by her armband. A long discussion was held with the patient regarding the risks, benefits and alternatives of the above-named procedure. The risks include, but are not limited to: pain, bleeding, infection, damage to surrounding structures (including nerves, blood vessels, skin, ligaments, tendons, and bone), nerve palsy, weakness, limp, wound complications, pseudarthrosis, failure of fusion, failure of hardware/implants/reduction, need for further surgery, blood clots, myocardial infarction, pulmonary embolism, cerebrovascular event, anesthesia complications, neurological injury, loss of function, and . Benefits as mentioned above. Alternatives include no surgery. All questions were answered. The patient understood and agreed to the procedure. Informed consent was obtained, witnessed and verified by hospital nursing staff. The patients lumbar spine was marked. The patient was then assessed by the anesthesia team who proceeded to administer a bilateral imaging-guided TLIP block to facilitate post-operative pain management. The patient was then taken to the operating room. Procedure: The patient was brought into the operating room. Consent and the operative site were again verified with the patient, the nursing team, the surgical team, and the anesthesiology team. Anesthesia, IV antibiotics, and TXA were then administered without complication. A time out was done, led by me the attending surgeon. An indwelling Aparicio catheter was successfully inserted by the nursing team. The intra-operative neuromonitoring team provided prepositioning baseline motor and sensory readings. The patient was then safely placed in a prone position with all bony prominences well-padded on a [facility] OSI spine table with strict attention paid to maintenance of sagittal vertical alignment. Retroversion of the pelvis was avoided by ensuring that the hips were extended. This also ensured appropriate lumbar lordosis. The arms were placed on well-padded arm boards and maintained with standard forward flexion, abduction, and external rotation of the shoulders , and flexion of the elbows. Special attention was given to the safe positioning of the cervical spine. The patients eyes, breasts, and belly were all free. The table was placed in 6 degrees of reverse Trendelenburg position to avoid ophthalmic vein congestion. Post-positional motor and sensory readings confirmed no change. A C-arm fluoroscopy unit was positioned perpendicularly to the table and maintained at the level of the upper thoracic spine, except when needed. The skin was prepped in standard, sterile fashion using betadine prep & scrub, wiped off with alcohol, and DuraPrep applied. Standard window draping was utilized, and this included draping of the C-arm. All pre-operative imaging was available throughout the case for intraoperative evaluation. Verification of the intended surgical levels was confirmed with a lateral fluoroscopic x-ray using a Robertson elevator for localization. A time-out was repeated, and the case began. A midline skin incision was performed from the tip of the spinous process of L1 to the tip of the spinous process of S2. Using electrocautery, the dissection was carried down through subcutaneous fat and then through the midline of the lumbodorsal fascia down to the tips of the spinous processes. A subperiosteal dissection was performed using a combination of unipolar electrocautery and Robertson elevation. This was carried down the spinous process, over the laminae, across the facet joints, and out over the tips of the transverse processes from L3 to the ala of the sacrum. In this dissection, the capsules of the L2-L3 joints were preserved bilaterally. The L3-L4, L4-L5, and L5-S1 joint capsules were pathologically hypertrophic. They were ablated using electrocautery and resected with rongeurs. The posterolateral dissection was performed with attention to hemostatis by utilizing both unipolar as well as bipolar electrocautery. The posterolateral space was packed with Ray-Deirdre sponges. A Abdulkadir clamp was placed over an exposed interspinous space and, once again, a lateral fluoroscopic x-ray helped identify the correct levels for dissection. A rongeur was used to grasp the L3, L4, and L5 spinous processes and demonstrate the mobility of the L3-L4, L4-L5, and L5-S1 segments. Bilateral laminectomies were performed at L3, L4, L5, and S1 utilizing Kerrison rongeur upcuts combined with Leksell rongeurs. All harvested bone was saved, freed of fibrous tissue, and morselized with a bone mill. Next, an osteotome was utilized to bilaterally longitudinally split the pars interarticularis and the inferior facets of L3, L4, and L5. The osteotomized bone was imploded towards the thecal sac, which was protected with cottonoid patties, and removed with either a Leksell rongeur or a Kerrison ronguer. Upon removal of all osteotomized bone, we gained clear and easy access to the superior facets of L4, L5, and S1, where tight recess stenosis was appreciated. The exiting L3, L4, L5, & S1 nerve roots were identified and protected. The medial edge of the superior facet was resected on each side using Kerrison rongeurs. This freed the theca and the exiting nerve roots at each level. Each foramen from L3-S1 was inspected utilizing an angled ball-tipped probe and proved to be generously capacious in accommodating the unobstructed exit of the nerve root at that level. The crowding of the convoluted ligamentum flavum and posterior facet joint capsules contributed to the recess stenosis. These structures were excised using Kerrison upcuts, thus fully completing the decompression. All retractors were relaxed and removed. A Jamshidi needle was delivered into the left posterior ileum through the same surgical incision. Via this, 120 mL of bone marrow was aspirated and spun down to isolate a mix of osteoprogenitor and hematopoietic cells. Retractors were inserted once again. The following was performed at L4-L5 and L5-S1: The theca was gently mobilized from right to left using a nerve root retractor. In order to do this, we ensured that each nerve root was completely free in its neural foramen as previously described. With the intervertebral disc clearly visualized, large epidural veins were cauterized using bipolar electrocautery. The disc was approached from the right side and using a #11-blade, an elliptical annulotomy was performed. Tomasa were passed into the disc at each level. At each level the discs were morselized with rotation of the tomasa, and then extricated with pituitary rongeurs and saved for lab evaluation. The end plates were freed of all soft tissues using a serrated curette. Milled bone autograft was packed into the interbody space, thus completing an anterior arthrodesis of the intervertebral space. A Fortilink Tetrafuse spacer, that was packed with autograft bone, was inserted into the prepared intervertebral space. The cage was placed in a Press-Fit type manner where the tomasa were one size under the actual size of the spacer placed as outlined above. An interference fit of the cage assured as we relied on ligamentotaxis for fixation. No dural problems were encountered, and the dura appeared healthy throughout the procedure. At this point, the neuromonitoring revealed no complications. Cages and sizes inserted: L4-L5: [id number]. L5-S1: 72l61am. Pedicle screws were then seated bilaterally from L3-S1 utilizing standard anatomical guidelines: IE the intersection of the horizontal axis of the transverse process with the longitudinal axis of the inferior facet at each level. Utilizing lateral fluoroscopic x-ray, a 4.5mm pneumatic drill was passed via the pedicle at each level, into the corresponding vertebral body. Imaging allowed us to ensure that the drill screw was delivered along the undersurface of each endplate. This ensured fixation into the best quality bone. Each pedicle was palpated with a ball-tipped feeler. No breech of anterior, medial, lateral, caudal or cranial bone bed was noted. Size Precision screws were inserted from L3 to S1. Each screw was reevaluated with lateral and anteroposterior fluoroscopy as well as intraoperative neuromonitoring. All intraoperative neuromonitoring readings were at or above the safe passage of 10 mA. The L3, L4, L5 and S1 pedicles were inspected and palpated using an angled ball- tipped probe. There was no evidence of screw breach involving any of the pedicles. Next, two rods were inserted and fixed into the screw heads with the appropriate screw caps. A torque-limiting device completed the fixation of each cap into each screw head. No crosslink utilized because of the bulging dura. The muscle was gently retracted off the intertransverse plane. All packing sponges were removed. Milled autologous bone, with allograft expansion, was combined with the bone marrow aspirate concentrate and used for the posterolateral arthrodesis along the intertransverse plane from L3 to S1. The recipient bone bed was denuded of all soft tissue. No burring was necessary due to healthy bleeding of each bony surface, including the posterior surface of the transverse processes and the lateral surface of the pars interarticularis at each level. Throughout the case, the wound was irrigated with normal saline solution to keep the exposed soft tissues hydrated. The retractors were released every 15 to 20 minutes to enable adequate blood flow to the paraspinal muscles. These muscles were gently massaged upon release of the retractors to further facilitate blood flow. At the end of the procedure, fragmented and compromised paraspinal muscle was superficially debrided. The dura was inspected and was completely intact. Closure: The lumbodorsal fascia overlying the paraspinal musculature was closed in the midline using #1 vicryl sutures in simple interrupted fashion. A 1/8 HemoVac drain was placed in the plane deep to the fascia, exiting adjacent to the proximal apex of the incision. The wound was repeatedly thoroughly irrigated with normal saline solution. The subcutaneous tissues were closed using #1 Vicryl sutures. The skin was closed using a running 2-0 Biosyn absorbable suture. This completed a complex, 4-layered wound closure of approximately 30cm. The skin was then painted with benzoin and Steri-Strips were applied perpendicular to the incision. A Primapore adhesive Telfa island dressing was applied over the Steri-Strips and a sterile, compressive dressing was applied using 4x4 gauze pads. The skin was painted with DuraPrep. The wound was then sealed with adhesive Ioban. Final AP & lateral fluoroscopic analysis revealed L4-L5 and L5-S1 PLIF cages and L3-S1 instrumentation that appeared intact & place. The L4-L5 and L5-S1 disc heights were reconstituted with visibly patent neuroforaminae. There was no fluoroscopic evidence of retained sponges or needles. The sponge and needle counts were correct at the end of the case and I, the attending surgeon, was present and scrubbed throughout the case. The patient was transferred to a hospital bed. All neural monitoring leads were removed. The patient was then transferred to the recovery room in stable condition, as per the anesthesia team, having tolerated the procedure well. Overall comment: Operation went extremely well with no complications. All appropriate goals were achieved in the execution of this operative event. MD BRENNA Martinez/[id number] MTDD
== END 2019-04-21 19:26 | disposition home or self-care (01) | DRG 454 ==
LOC: JSAMEDAYSX 10:16 → JICU 21:20 → J8W 04-19 19:42
PROVIDERS: ADMIT Orthopaedic Surgery Orthopaedic Surgery of the Spine; ATTEND Orthopaedic Surgery Orthopaedic Surgery of the Spine
PROC: 0SG1071 Fusion of 2 or more Lumbar Vertebral Joints with Autologous Tissue Substitute, Posterior Approach, Posterior Column, Open Approach (ICD-10-PCS; 2019-04-17)
PROC: 0SG30AJ Fusion of Lumbosacral Joint with Interbody Fusion Device, Posterior Approach, Anterior Column, Open Approach (ICD-10-PCS; 2019-04-17)
PROC: 0SG3071 Fusion of Lumbosacral Joint with Autologous Tissue Substitute, Posterior Approach, Posterior Column, Open Approach (ICD-10-PCS; 2019-04-17)
PROC: 00NY0ZZ Release Lumbar Spinal Cord, Open Approach (ICD-10-PCS; 2019-04-17)
PROC: 0ST20ZZ Resection of Lumbar Vertebral Disc, Open Approach (ICD-10-PCS; 2019-04-17)
PROC: 0ST40ZZ Resection of Lumbosacral Disc, Open Approach (ICD-10-PCS; 2019-04-17)
PROC: 07DR0ZZ Extraction of Iliac Bone Marrow, Open Approach (ICD-10-PCS; 2019-04-17)
PROC: 4A11X4G Monitoring of Peripheral Nervous Electrical Activity, Intraoperative, External Approach (ICD-10-PCS; 2019-04-17)
PROC: 0CQ7XZZ Repair Tongue, External Approach (ICD-10-PCS; 2019-04-17)
PROC: 30233N1 Transfusion of Nonautologous Red Blood Cells into Peripheral Vein, Percutaneous Approach (ICD-10-PCS; 2019-04-17)
PROC: 0SG10AJ Fusion of 2 or more Lumbar Vertebral Joints with Interbody Fusion Device, Posterior Approach, Anterior Column, Open Approach (ICD-10-PCS; principal; 2019-04-17 12:00)
DX: M51.16 Intervertebral disc disorders with radiculopathy, lumbar region (principal); D62 Acute posthemorrhagic anemia; M43.16 Spondylolisthesis, lumbar region; M53.2X6 Spinal instabilities, lumbar region; D72.829 Elevated white blood cell count, unspecified; G43.909 Migraine, unspecified, not intractable, without status migrainosus; I95.9 Hypotension, unspecified; S01.512A Laceration without foreign body of oral cavity, initial encounter; Y83.8 Other surgical procedures as the cause of abnormal reaction of the patient, or of later complication, without mention of misadventure at the time of the procedure
CPT/HCPCS: 36415; 36430; 36511; 76000-TC-FY; 80048; 83735; 84100; 84703; 85025; 85027; 86850; 86891; 86900; 86901; 86922; 88304-TC; 94010; 94760; 97116-GP; 97162-GP; J0131; P9038; P9058

== ENCOUNTER 2021-03-05 06:24 | Day surgery (SDC) | payer OTHER, MEDICARE ==
[2021-03-03 15:12] VITALS: BMI 26.3
[2021-03-05] MEDS ORDERED: LOCK ITEM NR ONE (06:41)
[2021-03-05] MEDS ORDERED: BUPIVACAINE HCL/PF 2.5 MG/ML - 30 ML VIAL IJ ONE (07:16)
[2021-03-05] MEDS ORDERED: EPINEPHrine 1:1,000 1 MG/1 ML - 30ML VIAL (INJECTION) ONE (07:16)
[2021-03-05] MEDS ORDERED: TRIAMCINOLONE ACET 40MG/1ML VIAL ONE (07:16)
[2021-03-05] MEDS ORDERED: LIDOCAINE HCL/PF 2% SDV 5ML VIAL ONE (07:43)
[2021-03-05] MEDS ORDERED: LIDOCAINE HCL 2% JELLY (5 ML/TUBE) ONE (07:43)
[2021-03-05] MEDS ORDERED: DEXAMETHASONE SOD PHOSPHATE 4 MG/1 ML VIAL ONE (07:43)
[2021-03-05] MEDS ORDERED: ONDANSETRON 4 MG/2 ML VIAL ONE (07:43)
[2021-03-05] MEDS ORDERED: ceFAZolin SODIUM 1 GM VIAL ONE (07:43)
[2021-03-05] MEDS ORDERED: KETOROLAC TROMETHAMINE 30 MG/1 ML VIAL ONE (07:43)
[2021-03-05] MEDS ORDERED: SUCCINYLCHOLINE CHLORIDE 200 MG/10 ML SYRINGE ONE (07:44)
[2021-03-05] MEDS ORDERED: MIDAZOLAM HCL 2 MG/2 ML SINGLE DOSE VIAL ONE (07:44)
[2021-03-05] MEDS ORDERED: PROPOFOL 20 ML ONE ×2 (07:44)
[2021-03-05] MEDS ORDERED: diazePAM 5 MG TABLET PO SCH (09:00)
[2021-03-05] MEDS ORDERED: ONDANSETRON 4 MG/2 ML VIAL IVPUSH PRN (09:06)
[2021-03-05] MEDS ORDERED: PROMETHAZINE HCL 25 MG/1 ML VIAL IVPB PRN (09:06)
[2021-03-05] MEDS ORDERED: HYDROmorphone HCL 2 MG TABLET PO ONE ×2 (09:06→10:25)
[2021-03-05] MEDS ORDERED: ACETAMINOPHEN 1000 MG/100 ML VIAL (NON FORMULARY) IVPB ONE (10:00)
[2021-03-05 10:20] VITALS: PULSE 67; TEMP 98.4
[2021-03-05] MEDS ORDERED: HYDROmorphone HCL 2 MG TABLET ONE (10:22)
[2021-03-05 11:15] VITALS: BP 110/71
[2021-03-05] MEDS ORDERED: TOPIRAMATE 25 MG TABLET PO SCH (22:00)
== END 2021-03-05 11:38 | disposition home or self-care (01) ==
LOC: FASU 06:24
PROVIDERS: ATTEND Orthopaedic Surgery Orthopaedic Surgery of the Spine
PROC: 0SCD4ZZ Extirpation of Matter from Left Knee Joint, Percutaneous Endoscopic Approach (ICD-10-PCS; principal; 2021-03-05 08:29)
DX: M23.92 Unspecified internal derangement of left knee (principal); M94.262 Chondromalacia, left knee
CPT/HCPCS: 81025; 94760; 97116-GP; J0131